=== PATIENT | male | born 1955 | race Two or more races ===

== ENCOUNTER 2019-01-06 05:02 | Day surgery (SDC) | payer OTHER ==
[2019-01-06] MEDS ORDERED: ULTRACET PO (08:56)
[2019-01-06] MEDS ORDERED: RECTICARE30 GM TOP (08:56)
== END 2019-01-06 15:20 | disposition home or self-care (01) ==
LOC: CIR.AMB 05:02
DX: K60.1 Chronic anal fissure (principal); K62.4 Stenosis of anus and rectum